=== PATIENT | male | born 1965 ===

== ENCOUNTER 2019-02-12 14:05 | Outpatient (CLI) | payer OTHER ==
[~2019-02-12 14:05] MED LIST: LIPITOR20 MG PO
== END 2019-02-13 07:36 | disposition home or self-care (01) ==
LOC: SONOGRAMA 14:05 → MAMO-SONO 14:15 → SONOGRAMA 02-13 07:36
DX: R10.13 Epigastric pain (principal); E06.5 Other chronic thyroiditis

== ENCOUNTER → 2019-02-12 14:43 | Outpatient (CLI) | payer OTHER | END | disposition home or self-care (01) | LOC: LAB 14:43 | DX: R10.13 Epigastric pain (principal); E06.5 Other chronic thyroiditis ==

== ENCOUNTER → 2020-07-10 09:35 | Outpatient (CLI) | payer OTHER | END | disposition home or self-care (01) | LOC: LAB 09:35 | PROVIDERS: ATTEND General Practice | DX: E03.9 Hypothyroidism, unspecified (principal); E55.9 Vitamin D deficiency, unspecified ==

== ENCOUNTER → 2020-07-21 10:19 | Outpatient (CLI) | payer OTHER | END | disposition home or self-care (01) | LOC: LAB 10:19 | PROVIDERS: ATTEND General Practice | DX: E03.8 Other specified hypothyroidism (principal); E55.9 Vitamin D deficiency, unspecified; Z11.3 Encounter for screening for infections with a predominantly sexual mode of transmission; Z11.4 Encounter for screening for human immunodeficiency virus [HIV]; Z12.5 Encounter for screening for malignant neoplasm of prostate; Z13.0 Encounter for screening for diseases of the blood and blood-forming organs and certain disorders involving the immune mechanism; Z13.1 Encounter for screening for diabetes mellitus; Z13.220 Encounter for screening for lipoid disorders; Z13.228 Encounter for screening for other metabolic disorders; Z13.29 Encounter for screening for other suspected endocrine disorder ==

== ENCOUNTER 2020-12-26 14:10 | Outpatient (CLI) | payer OTHER | END 2020-12-26 15:00 | disposition home or self-care (01) | LOC: EKG 14:10 | PROVIDERS: ATTEND Internal Medicine | DX: I10 Essential (primary) hypertension (principal) ==